=== PATIENT | male | born 1995 | race Caucasian/White ===

== ENCOUNTER 2016-06-21 01:19 | Emergency (ER) | payer OTHER ==
[2016-06-21 01:31] VITALS: BP 137/65
--- NOTE | 2016-07-19 23:22 | ED ---
Robb Davis Aidan, scribed for Jordan Lopez on 06/21/16 at 0211 . Laceration/Wound HPI - HPI Summary HPI Summary: 20 y/o male presents to the ED with a complaint of an acute, constant, mildly painful (2/10) 2cm head laceration that resulted from him falling and landing on the back of his head. There was no reported LOC, however, just after the incident, the laceration bled substantially. During the incident, the patient was mildly intoxicated. He claims to be UTD with his tetanus shot. Pt denies any nausea or changes in vision. - History of Current Complaint Stated Complaint: FALL//BACK OF HEAD LAC Time Seen by Provider: 06/21/16 01:54 Hx Obtained From: Patient Mechanism of Injury: Other - fall Onset/Duration: Sudden Onset, Lasting Hours, Still Present Aggravating: Other - unknown Alleviating: Other - unknown Timing: Constant Onset Severity: Moderate Current Severity: Mild - in terms of pain Pain Intensity: 2 Pain Scale Used: 0-10 Numeric Associated Signs & Symptoms: Negative - other than some bleeding at the laceration sight - Allergy/Home Medications Allergies/Adverse Reactions: Allergies Allergy/AdvReac Type Severity Reaction Status Date / Time Penicillins Allergy Hives Verified 06/21/16 01:31 PMH/Surg Hx/FS Hx/Imm Hx Infectious Disease History: No Infectious Disease History: Denies: Traveled Outside the [place] in Last 30 Days - Social History Occupation: Student Lives: With Family - fraternity house Alcohol Use: Weekly Substance Use Type: Reports: None Smoking Status (MU): Never Smoked Tobacco Review of Systems Constitutional: Negative Eyes: Negative ENT: Negative Cardiovascular: Negative Respiratory: Negative Gastrointestinal: Negative Genitourinary: Negative Musculoskeletal: Negative Skin: Other - 2cm linear head laceration Negative: Rash, Bruising Neurological: Negative Psychological: Normal All Other Systems Reviewed And Are Negative: Yes Physical Exam Triage Information Reviewed: Yes Vital Signs On Initial Exam: Initial Vitals Temp Pulse Resp BP Pulse Ox 97.7 F 103 20 137/65 100 06/21/16 01:28 06/21/16 01:28 06/21/16 01:28 06/21/16 01:28 06/21/16 01:28 Vital Signs Reviewed: Yes Appearance: Positive: Well-Appearing, No Pain Distress Skin: Positive: Warm, Skin Color Reflects Adequate Perfusion, Dry, Other - 2cm linear head laceration Head/Face: Positive: Normal Head/Face Inspection Eyes: Positive: EOMI, FAIZAN ENT: Positive: Normal ENT inspection Neck: Positive: Supple, Nontender Respiratory/Lung Sounds: Positive: Clear to Auscultation, Breath Sounds Present Cardiovascular: Positive: RRR, Pulses are Symmetrical in both Upper and Lower Extremities Abdomen Description: Positive: Nontender, Soft Bowel Sounds: Positive: Present Musculoskeletal: Positive: Strength/ROM Intact Neurological: Positive: Sensory/Motor Intact, Alert, Oriented to Person Place, Time Psychiatric: Positive: Affect/Mood Appropriate AVPU Assessment: Alert Procedures - Laceration/Wound Repair 1 Location: head - 2cm linear head laceration Description: Linear Length, Depth and Shape: 2cm linear head laceration Laceration/Wound Explored: clean Closure: [place] #__ - 3 Debridement: minimal - to none Number of Sutures: 0 - just 3 dimple Layer Closure?: Yes Diagnostics - Vital Signs Vital Signs Temp Pulse Resp BP Pulse Ox 06/21/16 01:28 97.7 F 103 20 137/65 100 - Laboratory Lab Statement: Any lab studies that have been ordered have been reviewed, and results considered in the medical decision making process. Laceration Repair Course/Dx - Course Course Of Treatment: acute, constant, mildly painful (2/10) 2cm head laceration that resulted from him falling and landing on the back of his head. There was no reported LOC, however, just after the incident, the laceration bled substantially. During the incident, the patient was mildly intoxicated. He claims to be UTD with his tetanus shot. Pt denies any nausea or changes in vision. While in the ED, his laceration was closed with 3 dimple. - Clinical Impression Provider Diagnoses: Head injury, Laceration Discharge - Discharge Plan Condition: Stable Disposition: HOME Discharge Disposition Comment: Please have the wound checked within 3 days, have the dimple removed in 3. Patient Education Materials: Head Injury (ED), Laceration (ED) The documentation as recorded by the Robb hilliard Aidan accurately reflects the service I personally performed and the decisions made by , Jordan Lopez.
== END 2016-06-21 02:29 | disposition home or self-care (01) ==
LOC: ED 01:19
DX: S01.91XA Laceration without foreign body of unspecified part of head, initial encounter (principal); W19.XXXA Unspecified fall, initial encounter; Y93.9 Activity, unspecified; Y92.9 Unspecified place or not applicable
CPT/HCPCS: 12001; 99281

== ENCOUNTER 2016-07-07 16:58 | Emergency (ER) | payer OTHER ==
[2016-07-07 18:34] VITALS: BP 140/83
[2016-07-07] MEDS ORDERED: Ondansetron ODT TAB* 4 MG PO ONE (19:40)
[2016-07-07] MEDS ORDERED: Ibuprofen TAB* 400 MG PO ONE (19:40)
--- NOTE | 2016-07-07 19:48 | UC ---
FLU HPI - HPI Summary HPI Summary: 20 male presents today complaining of abdominal cramping, nausea, vomiting and diarrhea started around 1:00am early this morning 07/07/16. 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 He admits to a fever/chills. States he vomited 1 time and has had loose still approximately 6 times. He has been eating bread and drinking fluids. He is able to keep it down. He has not taken any medication for his symptoms. Denies blood in vomit or stool. He has not ate any food at the [employer] or think this is food poisoning related. He called [facility] who told him to come here. He did not have the flu shot this year. Does admit to fatigue and some mild body aches. - History of Current Complaint Chief Complaint: UCRespiratory Stated Complaint: FLU LIKE SYMPTOMS Time Seen by Provider: 07/07/16 19:07 Hx Obtained From: Patient Onset/Duration: Sudden Onset Severity Currently: Moderate Severity Initially: Moderate Pain Intensity: 3 Pain Scale Used: 0-10 Numeric Associated Signs & Symptoms: Positive: Fever, T Max - 101, Cough, Nasal Congestion, Headache, Vomiting, Diarrhea Related Hx: Possible Flu/Infectious Exposure - Allergy/Home Medications Allergies/Adverse Reactions: Allergies Allergy/AdvReac Type Severity Reaction Status Date / Time Penicillins Allergy Hives Verified 07/07/16 18:34 PMH/Surg Hx/FS Hx/Imm Hx - Surgical History Surgical History: None - Family History Known Family History: Positive: None - Social History Alcohol Use: Rare Substance Use Type: None Smoking Status (MU): Never Smoked Tobacco Review of Systems Constitutional: Fever, Chills, Fatigue Skin: Negative Eyes: Negative ENT: Nasal Discharge Respiratory: Cough - dry intermittent mild x 1 day Cardiovascular: Negative Gastrointestinal: Abdominal Pain, Vomiting, Diarrhea Genitourinary: Negative Motor: Negative Neurovascular: Negative Musculoskeletal: Negative Neurological: Headache - "from fever" Psychological: Negative All Other Systems Reviewed And Are Negative: Yes Physical Exam Triage Information Reviewed: Yes Appearance: Well-Appearing, No Pain Distress, Well-Nourished Vital Signs: Initial Vital Signs Temp 100.8 F 07/07/16 18:30 Pulse 117 07/07/16 18:30 Resp 12 02/08/17 18:30 BP 140/83 07/07/16 18:30 Pulse Ox 100 07/07/16 18:30 tachycardic, temperature noted. Vital Signs Reviewed: Yes Eyes: Positive: Conjunctiva Clear ENT: Positive: Normal ENT inspection, Hearing grossly normal, Pharynx normal, TMs normal Dental Exam: Normal Neck: Positive: Supple, Nontender, No Lymphadenopathy Respiratory: Positive: Chest non-tender, Lungs clear, Normal breath sounds, No respiratory distress Cardiovascular: Positive: No Murmur, Pulses Normal, Brisk Capillary Refill, Tachycardia Abdomen Description: Positive: Nontender, No Organomegaly, Soft. Negative: Bruit, CVA Tenderness (R), CVA Tenderness (L), Distended, Guarding Bowel Sounds: Positive: Present Musculoskeletal Exam: Normal Neurological Exam: Normal Psychological Exam: Normal Skin Exam: Normal Flu Course/Dx - Course Course Of Treatment: influenza was obtained and negative. patient will be given zofran and ibuprofen in office. prescribed zofran to take at home and instructed to continue ibuprofen for fever and pain. drink plenty of fluids if continues or worsens told to return. - Differential Dx/Diagnosis Differential Diagnosis/HQI/PQRI: Influenza, Other - gastroenteritis, food poisoning, vomiting/diarrhea Provider Diagnoses: viral gastroenteritis Discharge - Discharge Plan Condition: Stable Disposition: HOME Prescriptions: Ondansetron ODT TAB* [Zofran Odt TAB*] 4 mg PO Q6H PRN #7 tab.odt PRN Reason: Nausea Patient Education Materials: Gastroenteritis (ED), Acute Nausea and Vomiting ( ED) Referrals: [facility] [Primary Care Provider] - Additional Instructions: Take medication as prescribed for nausea as needed. Eat foods such as bananas, rice, applesauce and toast to help with diarrhea. Take ibuprofen for fever/ chills and pain. Drink plenty of fluids and get lots of rest. If symptoms worsen and do not improve in the next 48 hours please return or be seen at [facility].
== END 2016-07-07 19:56 | disposition home or self-care (01) ==
LOC: UCEAST 16:58
DX: A08.4 Viral intestinal infection, unspecified (principal); Z88.0 Allergy status to penicillin
CPT/HCPCS: 87502; 99212; A9270-GY; G0463